=== PATIENT | male | born 1960 | race Caucasian/White ===

== ENCOUNTER 2022-03-31 09:22 | Emergency (ER) | payer MEDICARE, MEDICAID ==
[~2022-03-31] VITALS: Ht 182.9 cm; Wt 90.0 kg
[2022-03-31] MEDS ORDERED: LORAZEPAM 2MG/ML CPJ IM STA (09:57)
[2022-03-31] MEDS ORDERED: OLANZAPINE 10 MG/VIAL IM ONE (10:00)
[2022-03-31 10:30] LABS: BASOPHILS % 1.2 % (0.0-2.0); EOSINOPHILS % 4.5 % (0.0-5.0); HEMATOCRIT. 33.5 % (42.0-52.0); HEMOGLOBIN. 11.9 g/dL (14.0-18.0); MEAN CORPUSCULAR HEMOGLOBIN 30.5 pg (28.0-32.0); MEAN CORPUSCULAR VOLUME 85.7 fL (80.0-94.0); MEAN PLATELET VOLUME 7.3 fl (7.4-10.4); MONOCYTES % 4.9 % (2.0-8.0); NEUTROPHILS % 67.4 % (40.0-76.0); PLATELET 267 x1000/uL (130-400); RED BLOOD CELL COUNT 3.91 mill/uL (4.7-6.1); RED CELL DISTRIBUTION WIDTH 13.4 % (11.6-14.6)
[2022-03-31 10:37] LABS: CHLORIDE 107 mEq/L (98-107)
[2022-03-31 10:43] LABS: ETHANOL BLOOD < 10 mg/dL
[2022-03-31 22:13] LABS: CLARITY URINE CLEAR (CLEAR); COLOR URINE YELLOW (YELLOW); KETONES URINE NEGATIVE (NEGATIVE); LEUKOCYTE ESTERASE URINE NEGATIVE (NEGATIVE); NITRITE URINE NEGATIVE (NEGATIVE); OCCULT BLOOD URINE NEGATIVE (NEGATIVE); PROTEIN URINE TRACE (NEGATIVE); SPECIFIC GRAVITY URINE 1.024 (1.005-1.030); UROBILINOGEN URINE 0.2 E.U./dL (0.2-1.0)
[2022-03-31 22:25] LABS: *AMPHETAMINES SCREEN URINE NEGATIVE (NEGATIVE); *BARBITURATES SCREEN URINE NEGATIVE (NEGATIVE); *BENZODIAZEPINES SCREEN URINE NEGATIVE (NEGATIVE); *COCAINE SCREEN URINE NEGATIVE (NEGATIVE); CANNABINOID URINE SCREEN NEGATIVE (NEGATIVE); METHADONE URINE SCREEN NEGATIVE (NEGATIVE); OPIATES URINE SCREEN NEGATIVE (NEGATIVE); PHENCYCLIDINE URINE SCREEN NEGATIVE (NEGATIVE)
[2022-04-01] MEDS ORDERED: METFORMIN HCL 500MG TABLET PO ONE (09:30)
[2022-04-01] MEDS ORDERED: INSULIN REGULAR (HUMULIN R) 300UNITS/3ML VIAL SUBCUT ONE (09:30)
[2022-04-01] MEDS ORDERED: GLIPIZIDE 10MG TABLET PO SCH (09:30)
[2022-04-01] MEDS: DIVALPROEX SODIUM 250MG DR TABLET PO SCH ×2 (15:55→23:05)
[2022-04-01] MEDS: OLANZAPINE 10MG TABLET PO SCH ×2 (15:56→23:05)
[2022-04-02] MEDS: TEMAZEPAM 15MG CAPSULE PO PRN (00:11)
[2022-04-02] MEDS: DIVALPROEX SODIUM 250MG DR TABLET PO SCH ×2 (08:57→21:24)
[2022-04-02] MEDS: OLANZAPINE 10MG TABLET PO SCH ×2 (08:57→21:26)
[2022-04-02] MEDS ORDERED: LORAZEPAM 2MG/ML CPJ IM ONE ×2 (17:00→21:45)
[2022-04-02] MEDS ORDERED: LORAZEPAM 2MG/ML CPJ IM NR ×2 (17:00→22:00)
[2022-04-02] MEDS ORDERED: OLANZAPINE 10 MG/VIAL IM ONE (17:00)
[2022-04-02] MEDS ORDERED: DIPHENHYDRAMINE 50MG/ML VIAL IM ONE (17:00)
[2022-04-02] MEDS ORDERED: LORAZEPAM 1MG TABLET PO ONE (21:45)
[2022-04-03] MEDS: DIVALPROEX SODIUM 250MG DR TABLET PO SCH ×2 (09:35→21:56)
[2022-04-03] MEDS: OLANZAPINE 10MG TABLET PO SCH ×2 (09:35→21:56)
[2022-04-03] MEDS: TEMAZEPAM 15MG CAPSULE PO PRN (23:19)
[2022-04-04] MEDS: OLANZAPINE 10MG TABLET PO SCH ×2 (10:40→21:17)
[2022-04-04] MEDS: DIVALPROEX SODIUM 250MG DR TABLET PO SCH ×2 (10:40→21:17)
[2022-04-04] MEDS: TEMAZEPAM 15MG CAPSULE PO PRN (22:02)
[2022-04-05 03:00] VITALS: BP 112/75
== END 2022-04-05 04:00 ==
LOC: ER 09:22
DX: F23 Brief psychotic disorder (principal); F91.8 Other conduct disorders; N40.0 Benign prostatic hyperplasia without lower urinary tract symptoms; G40.909 Epilepsy, unspecified, not intractable, without status epilepticus; E11.9 Type 2 diabetes mellitus without complications; R45.851 Suicidal ideations; Z75.1 Person awaiting admission to adequate facility elsewhere; Z20.822 Contact with and (suspected) exposure to COVID-19; Z78.1 Physical restraint status
CPT/HCPCS: 36415; 80053; 80305; 80307; 80320; 80329; 81003; 82962; 85025; 96372; 99285; C9803; J1200; J1815; J2060; J3490; U0003; U0005; G0480